=== PATIENT | female | born 1985 | race Caucasian/White ===

== ENCOUNTER 2018-04-14 20:38 | Emergency (ER) | payer MEDICAID ==
[2018-04-14 21:36] LABS: #Basophils 0.1 thou/uL (0.0-0.2); #Eosinphils 0.2 thou/uL (0.0-0.7); #Lymphocytes 2.1 thou/uL (1.20-3.40); #Monocytes 0.5 thou/uL (0.11-0.59); #Neutrophils 4.5 thou/uL (1.40-6.50); %Basophils 1.6 % (0.0-1.0); %Eosinophils 2.5 % (0.0-10.0); %Lymphocytes 28.6 % (21.0-51.0); %Monocytes 6.6 % (0.0-10.0); %Neutrophils 60.8 % (42.0-75.0); Hemoglobin 11.8 g/dL (12.0-16.0); Mean Corpuscular HGB CONC 35.6 g/dL (32.0-36.0); Mean Corpuscular Hemoglobin 29.6 pg (27.0-31.0); Mean Corpuscular Volume 83.2 fL (78.0-98.0); Mean Platelet Volume 7.3 fL (7.4-10.4); Platelet Count 264 thou/uL (130-400); RBC Distribution Width 11.1 % (11.5-14.5); White Blood Cell (WBC) Count 7.5 thou/uL (4.8-10.8)
[2018-04-14 21:37] LABS: Bilirubin Negative (Negative); Blood, Urine Small (Negative); Clarity CLOUDY (Clear); Glucose, Urine (Dipstick) Negative (Negative); Leukocyte Trace (Negative); Nitrite Negative (Negative); Protein, Urine (Dipstick) Negative (Neg-Trace); Specific Gravity, Urine 1.023 (1.002-1.036); pH, Urine 6.5 (5.0-9.0)
[2018-04-14 21:39] LABS: Bacteria/HPF None Seen HPF (None Seen); Hyaline Casts/LPF 4-6 HYALINE CAST LPF (0-3 Hyaline); Pathc Cast-AUWi Flag 0.72 (0-2.49); Squamous Epithelial 0-3 HPF (0-3)
--- NOTE | 2018-04-14 22:25 | ULT ---
ULTRASOUND LESS THAN 14 WEEKS: 04/14/18 Exam includes transabdominal and vascular duplex with color and spectral doppler imaging. HISTORY: 33-year-old female with history of spotting since yesterday with concern for ectopic. The uterus measures 11.1 x 5.9 x 7.6 cm. The right ovary measures 3.2 x 2.2 x 2.4 cm. The left ovary measures 3.2 x 1.2 x 2.5 cm. There is a single viable intrauterine fetus with a crown-rump length of 2.9 cm equaling 9 weeks, 5 days of gestation with an EDC of 11/12/18. heart rate 165 beats per m inute. There is a small amount of fluid in the retrochorionic location evidence for small retrochorio matilda hemorrhage. Vascular duplex demonstrates flow to both ovaries. No evidence for ovarian torsion. N o abscess or abnormal fluid collection. IMPRESSION: Single viable early intrauterine at 9 weeks, 5 days gestation with an EDC of 11/12/18. Small amount of extrachorionic hemorrhage. POS: [facility]
== END 2018-04-14 22:31 | disposition home or self-care (01) ==
LOC: ERS 20:38
DX: O20.0 Threatened abortion (principal); Z3A.09 9 weeks gestation of pregnancy
CPT/HCPCS: 36415; 76856; 81003; 81015; 84702; 85025; 86900; 86901; 87086; 87480; 87491; 87510; 87591; 87660; 93976

== ENCOUNTER 2018-07-18 08:49 | Outpatient (CLI) | payer OTHER ==
--- NOTE | 2018-07-18 11:00 | ULT ---
OB ULTRASOUND COMPLETE: COMPARISON: None. HISTORY: anatomy. Size and dates. TECHNIQUE: Sagittal and transverse imaging of a gravid uterus is performed. FINDINGS: There is a single intrauterine gestation with variable presentation. Cervical length is 3.9 cm. Ant erior placenta. No evidence of previa. heart tones with a rate of 142 b.p.m. Amniotic fluid index is 15.70 cm. BIOMETRY: BPD 5.57 cm, 23 weeks 0 days Head circumference 21.14 cm, 23 weeks 2 days Abdominal circumference 18.13 cm, 23 weeks 0 days Femur length 4.18 cm, 23 weeks 5 days Average age by sonography is 23 weeks 2 days. Estimated delivery date by sonography is 11/12/2018. LMP 02/10/2018, estimated delivery date by LMP 11/17/2018. Estimated weight is 575 gm +/- 84 grams. LMP percentile 76th percentile. SURVEY: The following structures are adequately demonstrated: lateral ventricle, 4-chamber heart, nose and l ips, spine, stomach, cord insertion, bladder, 3-vessel cord. Limited evaluation of the cerebellum and cisterna magna, and kidneys. IMPRESSION: Olive[facility] gestation as above. survey as above. POS: [facility]
== END 2018-07-18 08:50 | disposition home or self-care (01) ==
LOC: BICULT 08:49
PROVIDERS: ATTEND Family Medicine
DX: Z34.82 Encounter for supervision of other normal pregnancy, second trimester (principal); Z3A.23 23 weeks gestation of pregnancy
CPT/HCPCS: 76805

== ENCOUNTER 2018-11-03 02:36 | Inpatient (IN) | payer OTHER ==
[2018-11-03] MEDS ORDERED: Ondansetron PF 4 MG/2 ML Vial IVP PRN ×2 (02:43→14:28)
[2018-11-03] MEDS ORDERED: Carboprost 250 MCG/ML AMP IM PRN (02:43)
[2018-11-03] MEDS ORDERED: Ibuprofen 800 MG TAB PO PRN (02:43)
[2018-11-03] MEDS ORDERED: Diphenoxylate HCl/Atropine Tablet PO PRN (02:43)
[2018-11-03] MEDS ORDERED: Butorphanol Tartrate 1 MG/ML VIAL SLOW IVP PRN (02:43)
[2018-11-03] MEDS ORDERED: hydrALAZINE 20 MG/ML VIAL SLOW IVP PRN (02:43)
[2018-11-03] MEDS ORDERED: Lidocaine 1% (PF) 30 ML VIAL SC PRN (02:43)
[2018-11-03] MEDS ORDERED: Misoprostol 200 MCG TAB PR PRN (02:43)
[2018-11-03] MEDS ORDERED: Methylergonovine 0.2 MG/ML VIAL IM PRN (02:43)
[2018-11-03] MEDS ORDERED: HYDROcodone/Acetaminophen 5/325 mg Tablet PO PRN (02:43)
[2018-11-03] MEDS ORDERED: Promethazine HCl 25 MG/ML VIAL IM PRN (02:43)
[2018-11-03] MEDS ORDERED: NS w/ Oxytocin 10 units 500 ML IV SCH ×2 (03:00)
[2018-11-03 03:09] VITALS: BMI 34.5
[2018-11-03] MEDS: Misoprostol 100 MCG TAB PO SCH ×2 (03:30→08:00)
[2018-11-03] MEDS: Lactated Ringer's 1,000 ML IV SCH ×4 (03:30→17:00)
[2018-11-03 03:47] LABS: Hemoglobin 9.9 g/dL (12.0-16.0); Mean Corpuscular HGB CONC 34.5 g/dL (32.0-36.0); Mean Corpuscular Hemoglobin 26.6 pg (27.0-31.0); Mean Corpuscular Volume 77.2 fL (78.0-98.0); Mean Platelet Volume 8.1 fL (7.4-10.4); Platelet Count 183 thou/uL (130-400); RBC Distribution Width 12.5 % (11.5-14.5); Red Blood Cell (RBC) Count 3.72 mill/uL (4.20-5.40); White Blood Cell (WBC) Count 8.4 thou/uL (4.8-10.8)
[2018-11-03 04:22] LABS: HBSAg Index 0.26 S/CO (0-0.99); Hep B Surf Ag Non-Reactive S/CO (NonReactive); Syphilis Antibody Nonreactive (Nonreactive); Syphilis Antibody Index 0.05 S/CO (<1.00 Non-Reactive)
[2018-11-03] MEDS ORDERED: NS w/ Oxytocin 10 units 500 ML IVPB SCH (06:45)
[2018-11-03] MEDS ORDERED: Fentanyl 4 mcg/Bup 0.1% Cadd 100 ML ONE ×2 (13:23→21:00)
[2018-11-03] MEDS ORDERED: Lactated Ringer's 500 ML IV PRN (14:28)
[2018-11-03] MEDS ORDERED: ePHEDrine/0.9% NaCl/PF SYRINGE 50 mg/10 ml SLOW IVP PRN (14:28)
[2018-11-03] MEDS ORDERED: Naloxone HCl 0.4 mg/ml Vial IVP PRN ×2 (14:28)
[2018-11-03] MEDS ORDERED: Acetaminophen 325 MG TAB PO PRN (14:28)
[2018-11-03] MEDS ORDERED: Communication Order-Pharmacy FS SCH (14:30)
[2018-11-03] MEDS ORDERED: Fentanyl 4 mcg/Bupivacaine 0.1% Cassette 100 ML EPIDURAL SCH (14:30)
[2018-11-03] MEDS ORDERED: LACTATED RINGERS IV SCH (18:30)
[2018-11-03] MEDS ORDERED: DEXTROSE IV SCH (18:30)
[2018-11-03] MEDS: NS / Oxytocin 40 units/1000ml 1,000 ML IV PRN ×2 (21:42→23:26)
[2018-11-04] MEDS ORDERED: diphenhydrAMINE 25 MG CAP PO PRN (00:48)
[2018-11-04] MEDS ORDERED: HYDROcodone/Acetaminophen 5/325 mg Tablet PO PRN ×2 (00:48)
[2018-11-04] MEDS ORDERED: Ondansetron PF 4 MG/2 ML Vial IVP PRN (00:48)
[2018-11-04] MEDS ORDERED: Bisacodyl 10 MG SUPP PR PRN (00:48)
[2018-11-04] MEDS ORDERED: Promethazine HCl 25 MG/ML VIAL IM PRN (00:48)
[2018-11-04] MEDS ORDERED: hydrALAZINE 20 MG/ML VIAL SLOW IVP PRN (00:48)
[2018-11-04] MEDS ORDERED: Milk Of Magnesia 30 ML UDCUP PO PRN (00:48)
[2018-11-04] MEDS ORDERED: Preparation H Ointment 28 GM TUBE PR PRN (00:48)
[2018-11-04] MEDS ORDERED: Benzocaine-Menthol 82.5 ML CAN TOP PRN (00:48)
[2018-11-04] MEDS ORDERED: NS / Oxytocin 40 units/1000ml 1,000 ML IV SCH (00:48)
[2018-11-04] MEDS ORDERED: Lanolin Ointment 7 GM TUBE TOP PRN (00:48)
[2018-11-04] MEDS ORDERED: Ibuprofen 800 MG TAB PO SCH (01:00)
[2018-11-04] MEDS: Ibuprofen 800 MG TAB PO SCH ×3 (05:44→17:28)
[2018-11-04 06:11] LABS: Hemoglobin 9.8 g/dL (12.0-16.0); Mean Corpuscular HGB CONC 33.3 g/dL (32.0-36.0); Mean Corpuscular Hemoglobin 25.9 pg (27.0-31.0); Mean Corpuscular Volume 77.7 fL (78.0-98.0); Mean Platelet Volume 8.1 fL (7.4-10.4); Platelet Count 159 thou/uL (130-400); RBC Distribution Width 12.6 % (11.5-14.5); Red Blood Cell (RBC) Count 3.79 mill/uL (4.20-5.40)
[2018-11-04] MEDS ORDERED: Adacel (T-DAP) 0.5 ML SYRINGE IM ONE (09:00)
[2018-11-04] MEDS: Ferrous Sulfate 325 MG TAB PO SCH ×2 (09:23→17:27)
[2018-11-04] MEDS: Docusate Calcium (SURFAK) 240 MG CAP PO SCH ×2 (09:23→21:05)
[2018-11-04] MEDS: Prenatal Vitamin 1 TAB PO SCH (09:23)
[2018-11-05] MEDS: Ibuprofen 800 MG TAB PO SCH ×3 (00:28→13:40)
[2018-11-05] MEDS: Misoprostol 100 MCG TAB PO SCH ×2 (07:25→07:26)
[2018-11-05] MEDS: Docusate Calcium (SURFAK) 240 MG CAP PO SCH (07:40)
[2018-11-05] MEDS: Prenatal Vitamin 1 TAB PO SCH (07:40)
[2018-11-05] MEDS: Ferrous Sulfate 325 MG TAB PO SCH (07:40)
[2018-11-05 08:00] VITALS: BP 115/66; TEMP 97.8
[2018-11-05] MEDS ORDERED: Measles/Mumps/Rubella 10 MCG/0.5 ML VIAL SC ONE (09:45)
== END 2018-11-05 14:00 | disposition home or self-care (01) | DRG 807 ==
LOC: L&D 02:36 → 3SW 11-04 00:32
PROVIDERS: ADMIT Family Medicine; ATTEND Family Medicine
PROC: 10907ZC Drainage of Amniotic Fluid, Therapeutic from Products of Conception, Via Natural or Artificial Opening (ICD-10-PCS; principal; 2018-11-04)
PROC: 10E0XZZ Delivery of Products of Conception, External Approach (ICD-10-PCS; 2018-11-04)
PROC: 3E0P7VZ Introduction of Hormone into Female Reproductive, Via Natural or Artificial Opening (ICD-10-PCS; 2018-11-04)
DX: O69.81X0 Labor and delivery complicated by cord around neck, without compression, not applicable or unspecified (principal); Z37.0 Single live birth; Z3A.39 39 weeks gestation of pregnancy
CPT/HCPCS: 36415; 51702; 85027; 86780; 86850; 86900; 86901; 87340; 90707; J0595; J2001; J2590

== ENCOUNTER 2022-05-04 11:51 | Emergency (ER) | payer BC, OTHER | END 2022-05-04 12:55 | disposition home or self-care (01) | LOC: ERS 11:51 | DX: L72.3 Sebaceous cyst (principal) | CPT/HCPCS: 99282 ==